=== PATIENT | female | born 1980 | race Caucasian/White ===

== ENCOUNTER 2018-06-12 00:23 | Emergency (ER) | payer OTHER, MEDICAID ==
[~2018-06-12] VITALS: Ht 157.5 cm; Wt 68.0 kg
[~2018-06-12 00:23] MED LIST: BACTRIM DS TAB1 EACH PO; HYDROCODONE-AP1 EAC6 PO; KEFLEX500 MG PO; NAPROSYN500 MG PO; PENICILLIN VK500 M1 PO; ULTRAM 50MG TAB50 MG PO
[2018-06-12] MEDS ORDERED: TOBRAMYCIN SULFA5 M1 OPHTHALMIC (00:39)
[2018-06-12] MEDS ORDERED: CYCLOGYL2 M1 OPHTHALMIC (00:39)
[2018-06-12 01:17] VITALS: BP 150/107
== END 2018-06-12 01:17 | disposition home or self-care (01) ==
LOC: M.ERS 00:23
DX: H16.002 Unspecified corneal ulcer, left eye (principal); G43.909 Migraine, unspecified, not intractable, without status migrainosus

== ENCOUNTER 2018-06-17 04:22 | Emergency (ER) | payer OTHER, MEDICAID ==
[~2018-06-17] VITALS: Ht 157.5 cm; Wt 68.0 kg
[~2018-06-17 04:22] MED LIST changes: +CYCLOGYL2 M1 OPHTHALMIC; +TOBRAMYCIN SULFA5 M1 OPHTHALMIC
[2018-06-17 06:22] VITALS: BP 152/100
== END 2018-06-17 06:20 | disposition short-term general hospital (02) ==
LOC: M.ERS 04:22
DX: H16.8 Other keratitis (principal); A48.8 Other specified bacterial diseases; G43.909 Migraine, unspecified, not intractable, without status migrainosus; F17.210 Nicotine dependence, cigarettes, uncomplicated